=== PATIENT | female | born 1965 | race Caucasian/White ===

== ENCOUNTER → 2017-05-02 | Outpatient (CLI) | payer BC ==
[~2017-05-02] MED LIST: ASPI81TA28 PO; IBUP-1050 PO; skin cream TOP
== END | disposition home or self-care (01) ==
LOC: C.PAPS 14:08
PROVIDERS: ATTEND Obstetrics & Gynecology
DX: Z01.419 Encounter for gynecological examination (general) (routine) without abnormal findings (principal)

== ENCOUNTER 2025-07-08 13:51 | Inpatient (IN) ==
--- NOTE | 2025-07-08 14:16 | Emergency Department Note ---
Impression & Plan Closed fracture of left patella, Fall ED Provider Note HISTORY OF PRESENT ILLNESS: Patient is a 60-year-old female presenting with left knee pain after a fall. Patient reports that she was at the library walking when she had stepped on a wet floor and slid, stating that she went into a split and felt like her left knee "dislocated." She denies striking her head or loss of consciousness. She was unable to get up off the ground secondary to pain in her left knee. EMS reported that the patient's foot was pulseless in the field. Patient's knee is currently flexed at 90 degrees and she is unable to fully extend. Complaining of diffuse pain anteriorly on the knee. Denies any chest pain, shortness of breath or lightheadedness prior to her fall. Reports she just slipped and fell. ROS: as above PHYSICAL EXAM: Constitutional: Patient appears in no acute distress. HENT: Head: Normocephalic and atraumatic. Eyes: EOMI, PERRL Mouth/Throat: Mucous membranes moist. Neck: Trachea midline. Neck supple. No midline cervical spine tenderness palpation. Cardiovascular: RRR, No murmurs, rubs or gallops. Intact distal pulses. Pulmonary/Chest: No respiratory distress. Breath sounds clear and equal bilaterally. No wheezes or rales. No chest wall tenderness to palpation. Abdominal: Abdomen soft, no tenderness, rebound or guarding. Musculoskeletal: - LLE: Obvious deformity to the anterior knee. Knee is diffusely swollen and ecchymosis noted to the proximal knee. No open wounds. Patient is unable to fully extend her knee secondary to pain. Able to dorsiflex and plantarflex at the ankle. Able to wiggle toes. Sensation intact to light touch about the nerve distributions of the lower leg. Intact DP and PT pulses on the left foot. Skin: Warm and dry. No rash, erythema, pallor or cyanosis Psychiatric: Appropriate mood and affect for situation. Neurological: Alert and keenly responsive. CN II-XII grossly intact MDM: - Vitals signs showed hypertension - History obtained via patient. History as above. - Chronic conditions affecting care: T cell lymphoma; HTN; HLD - Differential diagnoses include, but are not limited to: Patellar fracture; knee dislocation; tibial plateau fracture; vascular injury - Order placed for continuous cardiac monitoring. At this time, monitor showed rate of 85 bpm with normal sinus rhythm, per my interpretation. - External medical records reviewed. Oncology/hematology report dated 04/04/2025 was reviewed. Patient follows in their clinic for her T-cell lymphoma. She completed 6 cycles of chemotherapy on 11/25/2024. - Patient initially given 4 mg IV morphine and 4 mg IV Zofran on arrival to the emergency department. - X-ray imaging of the left knee reviewed and interpreted by myself showed a patellar fracture, per my interpretation. - Discussed results with the patient. Discussed that we will give her another dose of pain medication, 50 mcg IV fentanyl, and place her in a knee immobilizer. - X-ray imaging of the left knee reviewed by radiology notes an acute patellar fracture. X-ray imaging of the left tib/fib shows acute patellar fracture per radiology. - Discussed case with on-call orthopedic surgeon, Dr. aGllardo, at 15:34. He recommended that the [facility] in the hospital be contacted to come and evaluate the patient. He request that the patient be admitted to the medicine service for plan for surgical fixation of the patient's patellar fracture tomorrow morning after orthopedics evaluates. Reoperative laboratory orders, EKG and chest x-ray were ordered. - EKG image interpreted by myself showed normal sinus rhythm. Rate 73 bpm. QT 430. No acute ischemic changes. - CTA of the left knee ordered, given the report that patient's foot was pulseless. However, patient does have a palpable pulse both dorsalis pedis and posterior tibialis on arrival to the emergency department. I think her deformity to her left knee was her patellar fracture and less likely to have been a dislocation. - Laboratory workup interpreted by myself showed normal WBC; stable hemoglobin; stable electrolytes; normal troponin - CXR image viewed interpreted by myself is made for pneumonia, per my interpretation. - Discussion was had with case assistant about patient's case and need for admission - Hospitalist consulted for admission - Patient admitted to [facility] service for further evaluation and management. ASSESSMENT AND PLAN: Diagnosis: Closed fracture of left patella; fall Plan: Admit Past Med/Surg History Problem List (Updated 07/08/25 @ 15:52 by Claudia Martins MD) Fall (Acute) Closed fracture of left patella (Acute) Peripheral neuropathy due to chemotherapy Hyperlipidemia Port-A-Cath in place (08/09/24) Insertion Access Port with Fluoroscopy - Right Subclavian(Right) - Haim Manrique, Atopic dermatitis Anxiety LVH (left ventricular hypertrophy) Thyroid nodule T-cell lymphoma "Anaplastic large cell lymphoma" Eczema Leg length discrepancy (Acute) Reactive hypertension (Acute) Medical History (Updated 07/08/25 @ 15:52 by Claudia Martins MD) Lymphadenopathy of left cervical region Abnormal CT scan of head TMJ click Migraine Swelling of lymph node Left side of neck per pt due to cancer History of COVID-19 x2 Most recent 04/21/24- was given paxlovid > resolved Snores Asymptomatic age-related postmenopausal state ADD (attention deficit disorder) Surgical History History of anesthesia reaction difficulty waking, has issues taking deep enough breaths after anesthesia "they keep waking me up saying.. Kaila take a deep breath" History of tooth extraction History of wisdom tooth extraction History of biopsy skin History of excision of mass Excision of left neck mass (07/15/24): Grade 3 view, MAC#3, ETT 7.0 at [facility] H/O left knee surgery multiple left leg/knee (+ hardware) Hx of elbow surgery left tendon Family History Mother Breast cancer Colorectal cancer Family history of reaction to anesthesia Sister Kidney stones Brother Kidney stones Grandmother (Maternal) Ovarian cancer Father Prostate cancer Uncle Prostate cancer Uncle Prostate cancer Uncle Prostate cancer Other Diabetes Hypertension Denies family history of Myocardial infarction Social History Smoking Status: Never smoker Second Hand Exposure: No; Do You Dip or Chew Tobacco: No; Hx Alcohol Use: No Hx Substance Use: No Preferred Language: Urdu Communication Ability: Effective Visual Impairment: No Limitations Hearing Ability: Normal 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 Safety Required: No Beliefs That Will Affect Care: Christian Christian Beliefs: Shinto marital status: Single Current Living Situation: Parent Current Living Situation Comment: Lives with 92yr old mom current occupational status: employed Feels Safe at Home: Yes Childhood Exposure to Second-Hand Smoke: No Dental Care, Regularly: No Physical Activity Frequency: 1-2 Times per Week Seatbelt Use: always Sunscreen Use: Yes Assistive Devices: Glasses Allergies Allergies Allergy/AdvReac Type Severity Reaction Status Date / Time adhesive tape Allergy Mild rash, skin Verified 03/14/25 15:45 irritation latex Allergy Mild rash, Verified 03/14/25 15:45 itching chlorhexidine AdvReac Intermediate Rash Verified 03/14/25 15:45 SHAMPOO AdvReac Intermediate sensitive Uncoded 03/14/25 15:45 skin detergants AdvReac Mild "sensitive Uncoded 03/14/25 15:45 skin" Home Meds Home Medications Medication Instructions Recorded Confirmed multivitamin with minerals-folic 200 mcg PO HS 07/16/19 03/14/25 acid 200 mcg chewable tablet (Women's Multivitamin Gummies) ascorbic acid (vitamin C) 60 mg 60 mg PO BID PRN Cold Symptoms 08/29/23 03/14/25 lozenges (Vitamin C Drops) ibuprofen 200 mg tablet 400 - 600 mg PO Q6H PRN Pain 08/06/24 03/14/25 turmeric 400 mg capsule 400 mg PO UD PRN pain/inflammation 08/06/24 03/14/25 fluticasone propionate 50 1 spray intranasal DAILY 03/14/25 03/14/25 mcg/actuation nasal spray,suspension (Flonase Allergy Relief) Previous Rx's Medication Instructions Recorded clobetasol 0.05 % topical cream 1 applic topical BID #60 grams 08/12/24 rosuvastatin 5 mg tablet 5 mg PO QPM #90 tabs 02/13/25 gabapentin 600 mg tablet See Rx Instructions .Route 05/20/25 .COMPLEX #90 tabs Results & Data (ED) Vital Signs Vital Signs - 24 hr 07/08/25 13:54 07/08/25 14:24 07/08/25 15:19 Temperature 36.8 C Temperature Source Oral Pulse Rate 92 H 89 Pulse Rate [Apical] 85 Pulse Rhythm Regular Pulse Rhythm [Apical] Regular Pulse Strength Normal Pulse Strength [Apical] Normal Respiratory Rate 20 18 Respiratory Effort / Characteristics Non-Labored Non-Labored Spontaneous Respiratory Depth Normal Normal Respiratory Pattern Regular Blood Pressure 181/101 H Blood Pressure [Left Arm] 172/97 H Blood Pressure Mean 127 Blood Pressure Mean [Left Arm] 122 Blood Pressure Position Lying Blood Pressure Position [Left Arm] Lying Pulse Oximetry 98 98 Oxygen Delivery Method Room Air Room Air Sepsis Recent Fever Within 48 Hours No Sepsis New/Unexplained Change in Mental Status No Sepsis Action Taken by Nursing No Action Required 07/08/25 15:19 Temperature Temperature Source Pulse Rate Pulse Rate [Apical] Pulse Rhythm Pulse Rhythm [Apical] Pulse Strength Pulse Strength [Apical] Respiratory Rate Respiratory Effort / Characteristics Respiratory Depth Respiratory Pattern Blood Pressure Blood Pressure [Left Arm] Blood Pressure Mean Blood Pressure Mean [Left Arm] Blood Pressure Position Blood Pressure Position [Left Arm] Pulse Oximetry 97 Oxygen Delivery Method Room Air Sepsis Recent Fever Within 48 Hours Sepsis New/Unexplained Change in Mental Status Sepsis Action Taken by Nursing Laboratory Data 07/08/25 Unknown 07/08/25 Unknown Lab Results 07/08/25 Range/Units Unknown WBC 4.24 L (4.8-10.8) K/ul RBC 4.45 (4.20-5.40) M/uL Hgb 12.6 (12.0-16.0) g/dl Hct 38.3 (37.0-47.0) % MCV 86.1 (80.0-100.0) fL MCH 28.3 (25.0-34.0) pg MCHC 32.9 (32.0-36.0) g/dL RDW Std Deviation 38.5 (36.4-46.3) fL RDW Coeff of Wanda 12.2 (11.5-14.5) % Plt Count 134 (130-400) K/uL MPV 10.1 (9.4-12.4) fL Immature Gran % (Auto) 0.5 % Neut % (Auto) 56.3 % Lymph % (Auto) 30.2 % [place] % (Auto) 9.9 % Eos % (Auto) 2.4 % Baso % (Auto) 0.7 % Neut # (Auto) 2.39 (1.40-6.50) K/uL Lymph # (Auto) 1.28 (1.20-3.40) K/uL [place] # (Auto) 0.42 (0.11-0.59) K/uL Eos # (Auto) 0.10 (0.00-0.50) K/uL Baso # (Auto) 0.03 (0.00-0.20) K/uL Immature Gran # (Auto) 0.02 (0.01-0.20) K/uL Sodium 140 (136-145) mmol/L Potassium 3.6 (3.5-5.1) mmol/L Chloride 106 (98-107) mmol/L Carbon Dioxide 26 (21-32) mmol/L Anion Gap 8 (3-11) BUN 19 (6-23) mg/dl Creatinine 0.74 (0.6-1.2) mg/dl Est Cr Clr Drug Dosing 91.6 ml/min eGFR 92.57 BUN/Creatinine Ratio 25.7 H (10-20) Glucose 114 H (70-99(Fasting)) mg/dl Calcium 9.1 (8.6-10.3) mg/dl Total Bilirubin 0.4 (0.2-1.0) mg/dl AST 22 (13-39) U/L ALT 21 (7-52) U/L Alkaline Phosphatase 73 (34-104) U/L Troponin I High Sens 10.4 (0-14) pg/ml Total Protein 6.9 (6.0-8.3) gm/dl Albumin 4.0 (3.4-5.0) gm/dl Globulin 2.9 (2.5-4.0) gm/dl Albumin/Globulin Ratio 1.4 (0.9-2) Administered Medications Discontinued Medications Fentanyl Citrate (Fentanyl Citrate Pf 100 Mcg/2 Ml Vial) 50 mcg IV NOW STA Stop: 07/08/25 15:15 Last Admin: 07/08/25 15:31 Dose: 50 mcg Documented By: KEKE Morphine Sulfate (Morphine Sulfate 4 Mg/Ml 1 Ml Carp\\Vial) 4 mg IV NOW STA Stop: 07/08/25 14:14 Last Admin: 07/08/25 14:23 Dose: 4 mg Documented By: COLEEN Ondansetron HCl (Ondansetron Inj 2 Mg/Ml 2 Ml Vial) 4 mg IV NOW STA Stop: 07/08/25 14:14 Last Admin: 07/08/25 14:23 Dose: 4 mg Documented By: COLEEN Imaging Data Radiologist's Impression: Knee X-Ray 07/08/25 14:13 XR knee LT 1 or 2V routine, XR tibia fibula LT 2V CLINICAL HISTORY: L knee pain s/p trauma COMPARISON: None FINDINGS: Plate-screw fixation of the distal femur and proximal tibia shows no hardware complication. There is an acute comminuted displaced fracture at the patella with separation of the superior and inferior fragments by 6 cm. No other fracture or dislocation seen at the left knee or left tibia and fibula. There is moderate osteoarthritis at the left knee. IMPRESSION: Acute patella fracture. ACT 112: Negative or not required by law. Electronically signed by: Yasmani Baez M.D. 07/08/2025 3:11 PM Tibia/Fibula X-Ray 07/08/25 14:13 XR knee LT 1 or 2V routine, XR tibia fibula LT 2V CLINICAL HISTORY: L knee pain s/p trauma COMPARISON: None FINDINGS: Plate-screw fixation of the distal femur and proximal tibia shows no hardware complication. There is an acute comminuted displaced fracture at the patella with separation of the superior and inferior fragments by 6 cm. No other fracture or dislocation seen at the left knee or left tibia and fibula. There is moderate osteoarthritis at the left knee. IMPRESSION: Acute patella fracture. ACT 112: Negative or not required by law. Electronically signed by: Yasmani Baez M.D. 07/08/2025 3:11 PM Chest X-Ray 07/08/25 15:35 XR chest 1V portable CLINICAL HISTORY: pre op COMPARISON STUDY: 08/20/2024 FINDINGS: Stable right chest port. Heart size and pulmonary vasculature are normal. No consolidation or pleural effusion. No pneumothorax. IMPRESSION: No acute findings. ACT 112: Negative or not required by law. Electronically signed by: Yasmani Baez M.D. 07/08/2025 3:54 PM Discharge Plan Visit Data Chief Complaint: Knee Injury/Pain ED Provider: Claudia Martins Discharge Problem: Closed fracture of left patella, Fall Condition: Fair Forms Stand Alone Forms: [facility] Prescriptions Prescriptions: No Action clobetasol 0.05 % cream 1 applic topical BID Qty: 60 1RF Rx Instructions: Apply to areas of the trunk and extremities twice daily x 2 weeks as directed. rosuvastatin 5 mg tablet 5 mg PO QPM Qty: 90 1RF gabapentin 600 mg tablet See Rx Instructions .ROUTE .COMPLEX Qty: 90 1RF Dose Instruction: TAKE 1 TABLET BY MOUTH THREE TIMES A DAY Rx Instructions: TAKE 1 TABLET BY MOUTH THREE TIMES A DAY Vitamin C Drops 60 mg lozenge 60 mg PO BID PRN (Reason: Cold Symptoms) fluticasone propionate [Flonase Allergy Relief] 50 mcg/actuation spray,suspension 1 spray intranasal DAILY Rx Instructions: administer into each nostril multivit with min-folic acid [Women's Multivitamin Gummies] 200 mcg Tablet,Chewable 200 mcg PO HS ibuprofen 200 mg Tablet 400 - 600 mg PO Q6H PRN (Reason: Pain) turmeric 400 mg Capsule 400 mg PO UD PRN (Reason: pain/inflammation) Referrals Referrals: Abran Moss MD [Primary Care Provider] -
[2025-07-08] MEDS: ONDANSETRON INJ 2 MG/ML 2 ML VIAL IV STA (14:23)
[2025-07-08] MEDS: MoRPHine SULFATE 4 MG/ML 1 ML CARP\\VIAL IV STA (14:23)
--- NOTE | 2025-07-08 15:12 | XRay Report ---
XR knee LT 1 or 2V routine, XR tibia fibula LT 2V CLINICAL HISTORY: L knee pain s/p trauma COMPARISON: None FINDINGS: Plate-screw fixation of the distal femur and proximal tibia shows no hardware complication . There is an acute comminuted displaced fracture at the patella with separation of the superior and inferior fragments by 6 cm. No other fracture or dislocation seen at the left knee or left tibia and fibula. There is moderate osteoarthritis at the left knee. IMPRESSION: Acute patella fracture. ACT 112: Negative or not required by law. Electronically signed by: Yasmani Baez M.D. 07/08/2025 3:11 PM
[2025-07-08 15:47] LABS: Hematocrit (blood only) 38.3 % (37.0-47.0); Hemoglobin 12.6 g/dl (12.0-16.0); Immature Granulocytes # (auto) 0.02 K/uL (0.01-0.20); Immature Granulocytes % (auto) 0.5 %; Mean Corpuscular Hemoglobin 28.3 pg (25.0-34.0); Mean Corpuscular Volume 86.1 fL (80.0-100.0); Platelet Count 134 K/uL (130-400); RDW Standard Deviation 38.5 fL (36.4-46.3); Red Blood Count 4.45 M/uL (4.20-5.40); White Blood Count 4.24 K/ul (4.8-10.8)
[2025-07-08 15:54] LABS: Alanine Aminotransferase 21.0 U/L (7-52); Albumin Globulin Ratio 1.4 (0.9-2); Albumin Level 4.0 gm/dl (3.4-5.0); Alkaline Phosphatase 73.0 U/L (34-104); Anion Gap 8.0 (3-11); Bilirubin,Total 0.4 mg/dl (0.2-1.0); Blood Urea Nitrogen 19.0 mg/dl (6-23); Calcium 9.1 mg/dl (8.6-10.3); Carbon Dioxide 26.0 mmol/L (21-32); Chloride 106.0 mmol/L (98-107); Creatinine Clr Calc Pharmacy 91.6 ml/min; Globulin 2.9 gm/dl (2.5-4.0); Glucose 114.0 mg/dl (70-99(Fasting)); Potassium 3.6 mmol/L (3.5-5.1); Sodium 140.0 mmol/L (136-145); Total Protein 6.9 gm/dl (6.0-8.3)
--- NOTE | 2025-07-08 15:55 | XRay Report ---
XR chest 1V portable CLINICAL HISTORY: pre op COMPARISON STUDY: 08/20/2024 FINDINGS: Stable right chest port. Heart size and pulmonary vasculature are normal. No consolidation or pleural effusion. No pneumothorax. IMPRESSION: No acute findings. ACT 112: Negative or not required by law. Electronically signed by: Yasmani Baez M.D. 07/08/2025 3:54 PM
[2025-07-08] MEDS: OPTIRAY 320 125ml IV ONE (16:29)
--- NOTE | 2025-07-08 16:58 | History & Physical Report ---
Date of Service July 08, 2025 Assessment & Plan (1) Closed fracture of left patella: (2) Peripheral neuropathy due to chemotherapy: (3) Port-A-Cath in place: (4) T-cell lymphoma: Plan This is a 60-year-old female with a history of T-cell lymphoma status postchemotherapy currently in remission who presents to the hospital following a mechanical fall. She sustained a left patella fracture. 1. Acute left patella fracture: Following a mechanical fall Imaging study shows evidence of acute left patella fracture Orthopedics has been notified Will keep her n.p.o. after midnight good control pain, Tylenol, morphine She is medically optimized for surgery 2. T-cell lymphoma: Status postchemotherapy. Currently in remission Although patient still has a port Full code History of Present Illness Chief Complaint: fall Primary Care Provider: Abran Moss MD This is a 60-year-old female with a history of anaplastic large cell lymphoma, status post chemotherapy, currently in remission who came to the hospital today following a mechanical fall. According to the patient he was walking through a wet marble floor when she slipped lost her balance and fell on her knee. She denied hitting her head but complained immediately of diffuse pain in the knee. Upon arrival at the emergency department an x-ray was done which showed evidence of an acute left patella fracture. Orthopedics has been consulted and plan is for her to be admitted to the hospital for the OR tomorrow morning. Vital signs are stable, blood pressure 150/99 pulse 89 respiratory rate 16 saturating 97% on room air. Allergies Allergy/AdvReac Type Severity Reaction Status Date / Time adhesive tape Allergy Mild rash, skin Verified 03/14/25 15:45 irritation latex Allergy Mild rash, Verified 03/14/25 15:45 itching chlorhexidine AdvReac Intermediate Rash Verified 03/14/25 15:45 SHAMPOO AdvReac Intermediate sensitive Uncoded 03/14/25 15:45 skin detergants AdvReac Mild "sensitive Uncoded 03/14/25 15:45 skin" Home Medications Medication Instructions Recorded Confirmed Type multivitamin with minerals-folic 200 mcg PO HS 07/16/19 07/08/25 History acid 200 mcg chewable tablet (Women's Multivitamin Gummies) ascorbic acid (vitamin C) 60 mg 60 mg PO BID PRN Cold Symptoms 08/29/23 07/08/25 History lozenges (Vitamin C Drops) ibuprofen 200 mg tablet 400 - 600 mg PO Q6H PRN Pain 08/06/24 07/08/25 History turmeric 400 mg capsule 400 mg PO UD PRN pain/inflammation 08/06/24 07/08/25 History clobetasol 0.05 % topical cream 1 applic topical BID #60 grams 08/12/24 07/08/25 Rx fluticasone propionate 50 1 spray intranasal DAILY 03/14/25 07/08/25 History mcg/actuation nasal spray,suspension (Flonase Allergy Relief) gabapentin 600 mg tablet 600 mg PO TID 07/08/25 07/08/25 History rosuvastatin 5 mg tablet 5 mg PO QAM 07/08/25 07/08/25 History Past Med/Surg History Problem List (Updated 07/08/25 @ 15:52 by Claudia Martins MD) Fall (Acute) Closed fracture of left patella (Acute) Peripheral neuropathy due to chemotherapy Hyperlipidemia Port-A-Cath in place (08/09/24) Insertion Access Port with Fluoroscopy - Right Subclavian(Right) - Haim Manrique DO Atopic dermatitis Anxiety LVH (left ventricular hypertrophy) Thyroid nodule T-cell lymphoma "Anaplastic large cell lymphoma" Eczema Leg length discrepancy (Acute) Reactive hypertension (Acute) Medical History (Updated 07/08/25 @ 15:52 by Claudia Martins MD) Lymphadenopathy of left cervical region Abnormal CT scan of head TMJ click Migraine Swelling of lymph node Left side of neck per pt due to cancer History of COVID-19 x2 Most recent 04/21/24- was given paxlovid > resolved Snores Asymptomatic age-related postmenopausal state ADD (attention deficit disorder) Surgical History History of anesthesia reaction difficulty waking, has issues taking deep enough breaths after anesthesia "they keep waking me up saying.. Kaila take a deep breath" History of tooth extraction History of wisdom tooth extraction History of biopsy skin History of excision of mass Excision of left neck mass (07/15/24): Grade 3 view, MAC#3, ETT 7.0 at [facility] H/O left knee surgery multiple left leg/knee (+ hardware) Hx of elbow surgery left tendon Family History Mother Breast cancer Colorectal cancer Family history of reaction to anesthesia Sister Kidney stones Brother Kidney stones Grandmother (Maternal) Ovarian cancer Father Prostate cancer Uncle Prostate cancer Uncle Prostate cancer Uncle Prostate cancer Other Diabetes Hypertension Denies family history of Myocardial infarction Social History Smoking Status: Never smoker Second Hand Exposure: No; Do You Dip or Chew Tobacco: No; Hx Alcohol Use: No Hx Substance Use: No Preferred Language: Upper Sorbian Communication Ability: Effective Visual Impairment: No Limitations Hearing Ability: Normal [place] Required: No Beliefs That Will Affect Care: Latter Day Latter Day Beliefs: Buddhism marital status: Single Current Living Situation: Parent Current Living Situation Comment: Lives with 92yr old mom current occupational status: employed Feels Safe at Home: Yes Childhood Exposure to Second-Hand Smoke: No Dental Care, Regularly: No Physical Activity Frequency: 1-2 Times per Week Seatbelt Use: always Sunscreen Use: Yes Assistive Devices: Glasses Review of Systems Review of Systems: All systems reviewed are negative, apart from the ones contained in the history. Physical Exam Physical Exam: The patient is awake, alert and oriented 3, well developed and well nourished, normocephalic and atraumatic, lying in bed and in no acute distress. HEENT--PERRL, EOMI, mucous membranes and oropharynx mildly dry Neck--supple. No JVD. No bruits. Thyroid normal, trachea midline, no adenopathy. Heart--normal S1 and S2. No murmurs, rubs or gallops. Lungs--clear bilaterally, no respiratory distress, no accessory muscle use. Abdomen--normal bowel sounds and soft. Extremities--Left lower extremity in splint Dermatologic--normal skin turgor, normal color, no abnormal lymph nodes, no rash. Neurologic--cranial nerves II through XII grossly intact. Rheumatologic--normal range of motion. Psychiatric--normal affect. Results & Data Results & Data Vital Signs (Past 12 Hours) Vital Signs Temp Pulse Pulse Resp BP BP Pulse Ox 07/08/25 16:00 89 16 151/99 H 07/08/25 15:19 97 07/08/25 15:19 85 18 172/97 H 98 07/08/25 14:24 89 07/08/25 13:54 98.2 F 92 H 20 181/101 H 98 O2 Del Method 07/08/25 16:00 Room Air 07/08/25 15:19 Room Air 07/08/25 15:19 Room Air 07/08/25 14:24 07/08/25 13:54 Room Air PG Care Time/CCT Total # of Minutes Spent Total Time Spent with Patient: Total time spent is greater than 50% in coordination of care (as documented) at patient's floor/unit and/or counseling patient: Coding Level of Care Code 06919 INT INP/OBS CARE 2/55MIN Diagnoses Closed fracture of left patella S82.002A Peripheral neuropathy due to chemotherapy G62.0; T45.1X5A Port-A-Cath in place Z95.828 T-cell lymphoma C85.90 Time Spent (min) 55
--- NOTE | 2025-07-08 18:37 | CT Scan Report ---
Clinical history: Pain after injury Technique: Axial computed tomography images were obtained of the left knee after the administration of 118 cc of Optiray 320 intravenous contrast according to the CT angiogram protocol. Sagittal and coronal reconstructions were obtained No prior examination is available for comparison. Findings: The distal left superficial femoral artery, popliteal artery, and visualized calf arteries all demonstrate normal enhancement with no definite stenosis, dissection, pseudoaneurysm, or occlusion seen There is a soft tissue hematoma anteriorly, measuring up to 10 x 3 cm in cross-section and approximately 11 cm craniocaudal. There is some suspected contrast extravasation posterior to the patella There is internal fixation of the distal left femur with a fixation plate and screws. There is internal fixation of the proximal left tibia with fixation plates and screws. There is a distracted fracture of the patella that appears acute. There are small displaced fracture fragments. No subluxation or dislocation is seen. There are no significant arthritic changes. No focal osseous lesion is evident The visualized musculature appears unremarkable. No foreign body is evident Impression: 1. Distracted fracture of the patella 2. Soft tissue hematoma adjacent to the patellar fracture, with suspected active bleeding 3. Normal-appearing arteries 4. Internal fixation of the distal left femur and proximal left tibia ACT 112: Positive. There are findings on this exam that require communication between the performing entity and the patient following Patient Test Result Information Act ([place] ACT 112) guidelines. Electronically signed by Alec Mcclain 07-08-2025 6:37 PM
[2025-07-08] MEDS ORDERED: ACETAMINOPHEN 325 MG TAB PO PRN (18:44)
[2025-07-08] MEDS ORDERED: ONDANSETRON INJ 2 MG/ML 2 ML VIAL IV PRN (18:44)
[2025-07-08 20:45] LABS: INR 1.1 (0.9-1.1); Prothrombin Time 11.6 Seconds (9.0-12.0)
[2025-07-08] MEDS: SODIUM CHLORIDE 0.9% 1,000 ML IV SCH (21:00)
--- NOTE | 2025-07-08 21:09 | Orthopedic Consultation ---
Date of Service July 08, 2025 Assessment & Plan (1) Closed fracture of left patella: 60-year-old female with a long history of left lower extremity problems and surgery in the past with nothing recent in the past 20 years status post a fall with a comminuted displaced patella fracture. This is certainly some that needs surgical repair. No other injuries. 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 Plan: Treatment options were explained. The patient's been admitted by the medicine service and medically optimized. The plan is to take her to the operating tomorrow and do a partial patellectomy and extensor mechanism repair. The [place] of this procedure explained. Informed consent was obtained. Will use aspirin for DVT prophylaxis. (2) Fall: (3) Peripheral neuropathy due to chemotherapy: (4) Hyperlipidemia: History of Present Illness Reason for Consultation: . Left knee injury with patella fracture. Requesting Physician: . Attending Physician: Hector De La Vega MD . The patient is a 60-year-old female who presented to the emergency room earlier today with I displaced patella fracture status post a fall. She stained a mechanical fall earlier in the day. She got a long history of left knee and leg problems on that side. She has had a broken ankle, a tibial plateau fracture and then a distal femur fracture all several years apart with the last one being fixed about [address] Wolf. Previous surgeries were done by Dr. Vivar. She did have some wound healing problems at the tibial plateau fracture but nothing after the femur fracture nothing in the past 20 years. She denies any other injuries. She describes isolated knee and leg pain. Of note, the patient has a history of a T-cell lymphoma currently in remission. Allergies Allergy/AdvReac Type Severity Reaction Status Date / Time adhesive tape Allergy Mild rash, skin Verified 03/14/25 15:45 irritation latex Allergy Mild rash, Verified 03/14/25 15:45 itching chlorhexidine AdvReac Intermediate Rash Verified 03/14/25 15:45 SHAMPOO AdvReac Intermediate sensitive Uncoded 03/14/25 15:45 skin detergants AdvReac Mild "sensitive Uncoded 03/14/25 15:45 skin" Home Medications Medication Instructions Recorded Confirmed Type multivitamin with minerals-folic 200 mcg PO HS 07/16/19 07/08/25 History acid 200 mcg chewable tablet (Women's Multivitamin Gummies) ascorbic acid (vitamin C) 60 mg 60 mg PO BID PRN Cold Symptoms 08/29/23 07/08/25 History lozenges (Vitamin C Drops) ibuprofen 200 mg tablet 400 - 600 mg PO Q6H PRN Pain 08/06/24 07/08/25 History turmeric 400 mg capsule 400 mg PO UD PRN pain/inflammation 08/06/24 07/08/25 History clobetasol 0.05 % topical cream 1 applic topical BID #60 grams 08/12/24 07/08/25 Rx fluticasone propionate 50 1 spray intranasal DAILY 03/14/25 07/08/25 History mcg/actuation nasal spray,suspension (Flonase Allergy Relief) gabapentin 600 mg tablet 600 mg PO TID 07/08/25 07/08/25 History rosuvastatin 5 mg tablet 5 mg PO QAM 07/08/25 07/08/25 History Past Med/Surg History Problem List Fall (Acute) Closed fracture of left patella (Acute) Peripheral neuropathy due to chemotherapy Hyperlipidemia Port-A-Cath in place (08/09/24) Insertion Access Port with Fluoroscopy - Right Subclavian(Right) - Haim Manrique DO Atopic dermatitis Anxiety LVH (left ventricular hypertrophy) Thyroid nodule T-cell lymphoma "Anaplastic large cell lymphoma" Eczema Leg length discrepancy (Acute) Reactive hypertension (Acute) Medical History Lymphadenopathy of left cervical region Abnormal CT scan of head TMJ click Migraine Swelling of lymph node Left side of neck per pt due to cancer History of COVID-19 x2 Most recent 04/21/24- was given paxlovid > resolved Snores Asymptomatic age-related postmenopausal state ADD (attention deficit disorder) Surgical History History of anesthesia reaction difficulty waking, has issues taking deep enough breaths after anesthesia "they keep waking me up saying.. Kaila take a deep breath" History of tooth extraction History of wisdom tooth extraction History of biopsy skin History of excision of mass Excision of left neck mass (07/15/24): Grade 3 view, MAC#3, ETT 7.0 at [facility] H/O left knee surgery multiple left leg/knee (+ hardware) Hx of elbow surgery left tendon Family History Mother Breast cancer Colorectal cancer Family history of reaction to anesthesia has anxiety issues Sister Kidney stones Brother Kidney stones Grandmother (Maternal) Ovarian cancer Father Prostate cancer Uncle Prostate cancer Uncle Prostate cancer Uncle Prostate cancer Other Diabetes Hypertension Denies family history of Myocardial infarction Social History Smoking Status: Never smoker Second Hand Exposure: No; Do You Dip or Chew Tobacco: No; Hx Alcohol Use: Yes Hx Substance Use: No Preferred Language: Albanian Communication Ability: Effective Visual Impairment: No Limitations Hearing Ability: Normal Technology Administrator Required: No Beliefs That Will Affect Care: Adventist Adventist Beliefs: Oriental Orthodox marital status: Single Current Living Situation: Family Current Living Situation Comment: lives with mother current occupational status: employed Feels Safe at Home: Yes Childhood Exposure to Second-Hand Smoke: No Dental Care, Regularly: No Physical Activity Frequency: 1-2 Times per Week Seatbelt Use: always Sunscreen Use: Yes Assistive Devices: Glasses Review of Systems All systems reviewed & are unremarkable except as noted in HPI & below. Physical Exam . Physical examination was a pleasant middle-aged female. She is lying in bed looks pretty comfortable in a knee immobilizer. An examination of the left knee reveals a well aligned leg. She is she has got a well-healed incision over the anterior lateral aspect of her tibial tubercle extending posterior laterally up the lateral left thigh. She has got a large knee joint effusion. She cannot do a straight leg raise. She can dorsiflex and plantarflex her foot appropriately. She is neurologically intact. Results & Data Results & Data Laboratory Results . Diagnostic Findings . X-rays of the left knee and tib-fib were reviewed. It shows a comminuted displaced patella fracture with disruption of the extensor mechanism. That she has got hardware in the distal femur and proximal tibia but no signs of fracture there. PG Care Time/CCT Total # of Minutes Spent Total Time Spent with Patient: Total time spent is greater than 50% in coordination of care (as documented) at patient's floor/unit and/or counseling patient: Coding Level of Care Code 62083 IN/OBS CONSULT LVL 5,80M (57 - DECISION FOR SURGERY) Diagnoses Closed fracture of left patella S82.002A Fall W19.XXXA Peripheral neuropathy due to chemotherapy G62.0; T45.1X5A Hyperlipidemia E78.5
[2025-07-08] MEDS: MoRPHine SULFATE 2 MG/ML CARP IV PRN (21:47)
--- NOTE | 2025-07-09 06:59 | History & Physical Bridge Note ---
Date of Service July 09, 2025 History & Physical Bridge Note I have examined the patient, reviewed the History & Physical and in the interval since the performance of the History & Physical I have noted the following changes of clinical significance: no changes noted
[2025-07-09] MEDS ORDERED: MIDAZOLAM HCL 1 MG/ML 2ML VIAL ONE (07:06)
[2025-07-09] MEDS ORDERED: DEXAMETHASONE SOD INJ 4 MG/ML VIAL ONE (07:07)
[2025-07-09] MEDS ORDERED: ONDANSETRON INJ 2 MG/ML 2 ML VIAL ONE (07:07)
[2025-07-09] MEDS ORDERED: PROPOFOL IV EMULSION 10 MG/ML 20 ML VIAL IV ONE ×2 (07:07→08:22)
[2025-07-09] MEDS ORDERED: LIDOCAINE 2% 2 ML VIAL/AMP(20MG/ML) INFIL ONE (07:07)
[2025-07-09] MEDS ORDERED: ROCURONIUM BROMIDE 10 MG/ML 5 ML VIAL IV ONE (07:09)
[2025-07-09] MEDS ORDERED: ACETAMINOPHEN 1000 MG/100 ML IV IV ONE (07:12)
--- NOTE | 2025-07-09 07:16 | Anesthesiology Consultation ---
Date of Service July 09, 2025 Assessment & Plan Chart Review Chart Review: Acceptable Risk for Surgery and Patient NOT seen in Pre Admission Testing Consults Requested none ASA ASA3 Proposed Anesthesia Anesthesia Type: General History Surgery Operation Date: 07/09/25 07:30 Proposed Procedures p Left Knee Partial Patellectomy, Extensor Mechanism Repair - Corwin Gallardo MD Height/Weight Height: 5 ft 5 in Weight: 94 kg Allergies Allergy/AdvReac Type Severity Reaction Status Date / Time adhesive tape Allergy Mild rash, skin Verified 03/14/25 15:45 irritation latex Allergy Mild rash, Verified 03/14/25 15:45 itching chlorhexidine AdvReac Intermediate Rash Verified 03/14/25 15:45 SHAMPOO AdvReac Intermediate sensitive Uncoded 03/14/25 15:45 skin detergants AdvReac Mild "sensitive Uncoded 03/14/25 15:45 skin" Medications Home Medications Medication Instructions Recorded Confirmed Last Taken multivitamin with minerals-folic 200 mcg PO HS 07/16/19 07/08/25 08/05/24 acid 200 mcg chewable tablet (Women's Multivitamin Gummies) ascorbic acid (vitamin C) 60 mg 60 mg PO BID PRN Cold Symptoms 08/29/23 07/08/25 08/06/24 lozenges (Vitamin C Drops) ibuprofen 200 mg tablet 400 - 600 mg PO Q6H PRN Pain 08/06/24 07/08/25 08/08/24 23:59 turmeric 400 mg capsule 400 mg PO UD PRN pain/inflammation 08/06/24 07/08/25 08/02/24 clobetasol 0.05 % topical cream 1 applic topical BID #60 grams 08/12/24 07/08/25 07/07/25 fluticasone propionate 50 1 spray intranasal DAILY 03/14/25 07/08/25 Unknown mcg/actuation nasal spray,suspension (Flonase Allergy Relief) gabapentin 600 mg tablet 600 mg PO TID 07/08/25 07/08/25 07/08/25 rosuvastatin 5 mg tablet 5 mg PO QAM 07/08/25 07/08/25 07/08/25 Active Medications Generic Name Dose Route Start Last Admin Trade Name Freq PRN Reason Stop Dose Admin Sodium Chloride 1,000 mls @ 80 mls/hr 07/08/25 18:44 07/08/25 21:00 Nss IV 07/11/25 18:43 80 mls/hr .[id number] Administration Morphine Sulfate 2 mg 07/08/25 18:44 07/08/25 21:47 Morphine Sulfate 2 Mg/Ml Carp IV 07/22/25 18:43 2 mg Q4H PRN Administration Pain Past Medical History Medical History Lymphadenopathy of left cervical region Abnormal CT scan of head TMJ click Migraine Swelling of lymph node Left side of neck per pt due to cancer History of COVID-19 x2 Most recent 04/21/24- was given paxlovid > resolved Snores Asymptomatic age-related postmenopausal state ADD (attention deficit disorder) obese HLD Exercise / Class Metabolic Activity II 4-5 Yardwork/Stairs/Walk up hill Past Family History Family History Mother Breast cancer Colorectal cancer Family history of reaction to anesthesia has anxiety issues Sister Kidney stones Brother Kidney stones Grandmother (Maternal) Ovarian cancer Father Prostate cancer Uncle Prostate cancer Uncle Prostate cancer Uncle Prostate cancer Other Diabetes Hypertension Denies family history of Myocardial infarction Past Surgical History Surgical History History of anesthesia reaction difficulty waking, has issues taking deep enough breaths after anesthesia "they keep waking me up saying.. Kaila take a deep breath" History of tooth extraction History of wisdom tooth extraction History of biopsy skin History of excision of mass Excision of left neck mass (07/15/24): Grade 3 view, MAC#3, ETT 7.0 at [facility] H/O left knee surgery multiple left leg/knee (+ hardware) Hx of elbow surgery left tendon Past Anesthesia History No Hx of Anesthesia Complications and No Family Hx of Anesthesia Complications History of PONV No Hx of PONV and No Hx of Motion Sickness Social History Smoking Status: Never smoker Do You Dip or Chew Tobacco: No Hx Alcohol Use: Yes alcohol intake frequency: holidays/special occasions only Hx Substance Use: No substance use type: does not use Physical Exam Vital Signs Last Vital Signs Temp 37.1 C 07/08/25 23:50 Pulse 79 07/08/25 23:50 Resp 16 07/08/25 23:50 BP 119/76 07/08/25 23:50 Pulse Ox 92 07/08/25 23:50 O2 Del Method Room Air 07/08/25 23:50 Testing Laboratory Results 07/08/25 Unknown 07/08/25 Unknown PT 11.6 Seconds (9.0-12.0) 07/08/25 19:45 INR 1.1 (0.9-1.1) 07/08/25 19:45 Electrocardiogram Date: 07/08/25 Findings: + NSR @ (@ 73;? anter. infarct,age ?) Chest X-Ray Date: 07/08/25 Findings: + NAD Echocardiogram Date: 06/28/25 EF: 55% LV Function: normal RWMA: + none Other Findings: + LVH (mild) and + diastolic dysfunction (Grade 1) Valvular Disease: + no significant valvular disease
[2025-07-09] MEDS ORDERED: ceFAZolin 330 MG/ML 1 GM VIAL ONE (07:37)
[2025-07-09] MEDS ORDERED: WATER, STERILE FOR INJ 10 ML VIAL ONE ×3 (07:37→08:18)
[2025-07-09] MEDS ORDERED: TRANEXAMIC ACID / 0.7% NACL 1000MG/100ML BAG IV ONE (07:37)
[2025-07-09] MEDS ORDERED: ONDANSETRON INJ 2 MG/ML 2 ML VIAL IV PRN ×2 (07:42→10:48)
[2025-07-09] MEDS ORDERED: FLUMAZENIL 0.1 MG/1 ML 10 ML VIAL IV PRN (07:42)
[2025-07-09] MEDS ORDERED: PROMETHAZINE HCL 6.25 MG in SODIUM CHLORIDE 0.9% 50 ML IV PRN (07:42)
[2025-07-09] MEDS ORDERED: HYDROmorphone INJ 1 MG/ML SYRINGE IV PRN (07:42)
[2025-07-09] MEDS ORDERED: NALOXONE HCL 0.4 MG/1 ML VIAL/CARP IV PRN ×2 (07:42→10:48)
[2025-07-09] MEDS ORDERED: ATROPINE SULFATE 0.1 MG/ML 10ML SYR IV PRN (07:42)
[2025-07-09] MEDS: TRANEXAMIC ACID / 0.7% NACL 1,000 MG/100 ML BAG IV STA (08:07)
[2025-07-09] MEDS ORDERED: HYDROmorphone INJ 2 MG/ML SYR/VIAL ONE (08:17)
[2025-07-09] MEDS ORDERED: METOCLOPRAMIDE HCL INJ 5 MG/ML 2 ML VIAL ONE (08:22)
[2025-07-09] MEDS ORDERED: KETOROLAC 30 MG/ML VIAL ONE (08:53)
[2025-07-09] MEDS: BUPIVACAINE/EPINEPHRINE 0.5% MPF 1:200,000 30 ML VIAL ONE (09:17)
--- NOTE | 2025-07-09 09:55 | Operative Report ---
PG Post Operative Report Pre & Post Diagnosis Operation Date: 07/09/25 07:30 Pre-Op Diagnosis: Closed comminuted/displaced fracture of left patella. Post-Op Diagnosis: Closed comminuted/displaced fracture of left patella. I identified the patient and participated in the time-out.: Yes Procedure Operation Date: 07/09/25 07:30 Actual Procedures p Left Knee Partial Patellectomy, Extensor Mechanism Repair(Left) - Corwin Gallardo MD Surgeon Corwin Gallardo MD Pay Station Department Manager Vasiliy Saravia PA-C Estimated Blood Loss 50 Findings Consistent with Post-Op Diagnosis Operative findings revealed extremely comminuted displaced patella fracture with X3 medial and lateral retinacular tears. Specimens None Anesthesia Type General Complications none Disposition Accompanied Patient To Recovery: No Indications Patient is a 60-year-old female whose had a long history of various problems with respect of his left leg. That she has had an ankle fracture, tibial plateau fracture and a distal femur fracture along with some wound healing problems and skin grafting and coverage procedures. She has not anything done in the past 20 years. She stained a fall yesterday. Acute onset of pain. She brought the emergency room x-rays of displaced comminuted patella fracture with extensor mechanism disruption. The patient indicated for surgical repair. Description of Procedure The patient was taken to the op room, identified, placed on the operating table in the supine position. All contact areas were appropriately padded. IV antibiotics fibra anesthesia team. A general anesthetic was implemented. A left phytate was then placed. The left lower extremity was then scrubbed with a Betadine, prepped with DuraPrep and then draped in usual sterile fashion. The left leg was elevated exsanguinated with use of an Esmarch and tourniquet placed at 300 mmHg. An anterior lateral kind of approach of the leg. Knee was performed. I tried to use her previous incision and then extended it medially over the patella. We tried to provide the safest course for healing considering her previous procedures in this area. Sharp dissection Through subcutaneous tissues. There was a large hematoma. The full-thickness flaps were elevated off the extensor mechanism. I then debrided some of the loose frayed tissue. I then carefully debrided the patella tendon of the bone fragments inferiorly. We left some of the fragments intact to hopefully provide little better purchase with a suture. I then placed 3 holes through the patella from the inferior to the superior aspect. I then placed two #5 FiberWire sutures in a Krakw fashion and the main portion of the patella tendon laterally. This encompassed about 75% of the tendon. I then fed this through the drill hole just pulled the quad tendon down and so these and got excellent approximation. I then placed a suture anchor over the anterior medial aspect where there was a small portion of the patella tendon avulsed off the proximal tibia. This was placed through the patella tendon and then repaired. I then repaired the medial and lateral extensor retinaculum tears with #1 PDS suture in a nartwl-wp-mewod fashion. Of the wound was irrigated. Injected locally with 30 cc of half percent Marcaine with epinephrine. The tourniquet was let down for final tourniquet time 54 minutes. Hemostasis surgery was electrocautery. Wound was once again irrigated. The tourniquet was let down for final tourniquet time 54 minutes. The subcutaneous tissue was then closed with 2-0 Vicryl suture in a buried interrupted fashion skin was closed with 3-0 nylon suture in simple fashion. Leg was then cleaned and dried and a sterile dressing with Xeroform, 4 fours, sterile cast padding, ADB pads, Sang bandage, knee immobilizer was applied. The patient then brought out of general esthesia and transferred to the recovery in stable condition. Patient tolerated procedure well and there are no complications. Vasiliy Saravia, my physician assistant production manager, was present for the entire procedure. His assistance was required for proper patient positioning, prepping and draping, surgical exposure, retraction, perform the technical details of the operation, closure of the incision site, and placement of postoperative sterile bandage. I attest to the content of the Intraoperative Record and any orders documented therein. Any exceptions are noted below.
[2025-07-09] MEDS: LABETALOL HCL IV 5 MG/ML 20ML IV ONE (10:05)
--- NOTE | 2025-07-09 10:21 | Hospitalist Progress Note ---
Date of Service July 09, 2025 Assessment & Plan (1) Closed fracture of left patella: (2) Peripheral neuropathy due to chemotherapy: (3) Port-A-Cath in place: (4) T-cell lymphoma: Plan This is a 60-year-old female with a history of T-cell lymphoma status postchemotherapy currently in remission who presents to the hospital following a mechanical fall. She sustained a left patella fracture. 1. Acute left patella fracture: Following a mechanical fall Imaging study shows evidence of acute left patella fracture Orthopedics has been notified Plan is for surgery this morning 2. T-cell lymphoma: Status postchemotherapy. Currently in remission Although patient still has a port Full code Admission and Anticipated Discharge Date Admission Date: July 08, 2025 Subjective Going for surgery Review of Systems Review of Systems: All systems reviewed are negative, apart from the ones contained in the history. Physical Exam Physical Exam: The patient is awake, alert and oriented 3, well developed and well nourished, normocephalic and atraumatic, lying in bed and in no acute distress. HEENT--PERRL, EOMI, mucous membranes and oropharynx mildly dry Neck--supple. No JVD. No bruits. Thyroid normal, trachea midline, no adenopathy. Heart--normal S1 and S2. No murmurs, rubs or gallops. Lungs--clear bilaterally, no respiratory distress, no accessory muscle use. Abdomen--normal bowel sounds and soft. Extremities--Left lower extremity in splint Dermatologic--normal skin turgor, normal color, no abnormal lymph nodes, no rash. Neurologic--cranial nerves II through XII grossly intact. Rheumatologic--normal range of motion. Psychiatric--normal affect. Results & Data Results & Data Vital Signs (Past 12 Hours) Vital Signs Temp Pulse Pulse Resp BP Pulse Ox O2 Del Method 07/09/25 10:00 117 H 14 173/105 H 100 Oxymask 07/09/25 09:50 97.3 F L 123 H 13 174/101 H 100 Oxymask 07/09/25 07:59 98.6 F 90 18 149/80 H 94 Room Air 07/08/25 23:50 98.7 F 79 16 119/76 92 Room Air O2 Flow Rate 07/09/25 10:00 10 07/09/25 09:50 10 07/09/25 07:59 09/26/25 23:50 PG Care Time/CCT Total # of Minutes Spent Total Time Spent with Patient: Total time spent is greater than 50% in coordination of care (as documented) at patient's floor/unit and/or counseling patient: Coding Level of Care Code 03948 SUB INP/OBS CARE 2/35MIN Diagnoses Closed fracture of left patella S82.002A Peripheral neuropathy due to chemotherapy G62.0; T45.1X5A Port-A-Cath in place Z95.828 T-cell lymphoma C85.90 Time Spent (min) 35
--- NOTE | 2025-07-09 10:31 | Anesthesiology Progress Note ---
Date of Service July 09, 2025 Anesthesia Post Procedure Vital Signs Vital Signs: Temp Pulse Pulse Pulse Resp BP BP 07/09/25 10:20 86 14 07/09/25 10:10 91 H 14 07/09/25 10:00 117 H 14 07/09/25 09:50 36.3 C L 123 H 13 07/09/25 07:59 37.0 C 90 18 07/08/25 23:50 37.1 C 79 16 07/08/25 18:46 36.7 C 82 17 136/87 07/08/25 18:08 97 H 07/08/25 18:00 79 20 137/94 07/08/25 17:00 93 H 16 155/93 H 07/08/25 17:00 95 H 16 155/93 H 07/08/25 16:00 89 16 151/99 H 07/08/25 15:19 07/08/25 15:19 85 18 172/97 H 07/08/25 14:24 89 07/08/25 13:54 36.8 C 92 H 20 181/101 H BP Pulse Ox O2 Del Method O2 Flow Rate 07/09/25 10:20 144/92 H 100 Oxymask 3 07/09/25 10:10 135/85 98 Oxymask 6 07/09/25 10:00 173/105 H 100 Oxymask 10 07/09/25 09:50 174/101 H 100 Oxymask 10 07/09/25 07:59 149/80 H 94 Room Air 07/08/25 23:50 119/76 92 Room Air 07/08/25 18:46 98 Room Air 07/08/25 18:08 07/08/25 18:00 96 Room Air 07/08/25 17:00 94 Room Air 07/08/25 17:00 96 Room Air 07/08/25 16:00 Room Air 07/08/25 15:19 97 Room Air 07/08/25 15:19 98 Room Air 07/08/25 14:24 07/08/25 13:54 98 Room Air Pain Intensity Left Knee: Pain Intensity: 4 Transfer of Care Handoff Completed per policy Notes Mental Status: alert / awake / arousable Patient Amnestic to Procedure: Yes Nausea / Vomiting: adequately controlled Pain: adequately controlled Airway Patency, RR, SpO2: stable & adequate BP & HR: stable & adequate Hydration State: stable & adequate Anesthetic Complications: no major complications apparent
[2025-07-09] MEDS ORDERED: ALUMINUM/MAGNESIUM SUSP 30 ML UDC PO PRN (10:48)
[2025-07-09] MEDS ORDERED: METOCLOPRAMIDE HCL INJ 5 MG/ML 2 ML VIAL IV PRN (10:48)
[2025-07-09] MEDS ORDERED: diphenhydrAMINE Capsule 25 MG CAP PO PRN (10:48)
[2025-07-09] MEDS: ACETAMINOPHEN 500 MG TAB PO SCH (13:11)
[2025-07-09] MEDS: SODIUM CHLORIDE 0.9% 1,000 ML IV SCH (13:11)
[2025-07-09] MEDS: KETOROLAC 30 MG/ML VIAL IV SCH (13:11)
[2025-07-09] MEDS: SCOPOLAMINE 1 MG/72 HR TDSY PATCH TD ONE (13:53)
[2025-07-09] MEDS: FAMOTIDINE/PF 20 MG/2 ML VIAL IV ONE (13:53)
[2025-07-09] MEDS: TRANEXAMIC ACID / 0.7% NACL 1,000 MG/100 ML BAG IV SCH (16:29)
[2025-07-09] MEDS: ASCORBIC ACID 500 MG TAB PO SCH (16:31)
[2025-07-09] MEDS: DOCUSATE SODIUM 100 MG CAP PO SCH (20:15)
[2025-07-09] MEDS: ASPIRIN 81 MG ECTAB PO SCH (20:15)
[2025-07-09] MEDS: SENNA 8.6 MG TAB PO SCH (20:15)
[2025-07-09] MEDS: HYDROmorphone INJ 0.5 MG/0.5 ML SYR IV PRN (21:44)
--- NOTE | 2025-07-09 22:00 | Electrocardiogram Report ---
Test Reason : Blood Pressure : */* mmHG Vent. Rate : 73 BPM Atrial Rate : 73 BPM P-R Int : 154 ms QRS Dur : 104 ms QT Int : 430 ms P-R-T Axes : 42 2 12 degrees QTcB Int : 473 ms Normal sinus rhythm Cannot rule out Anterior infarct , age undetermined Abnormal ECG When compared with ECG of 20-Aug-2024 16:34, No significant change was found Confirmed by Larry Sanchez ([id number]) on 07/09/2025 10:00:39 PM Referred By: REFERRED SELF Confirmed By: Larry Sanchez
--- NOTE | 2025-07-10 07:20 | Orthopedic Progress Note ---
Date of Service July 10, 2025 Assessment & Plan (1) Closed fracture of left patella: Plan: 60-year-old female with history of multiple surgeries on this left leg in the past now postop day 1 from a left knee partial patellectomy me and extensor mechanism repair. Clinically she is doing okay. Pain is currently under control. Plan: 1. PT/OT. She can fully weight-bear as tolerated as long as she is in the knee immobilizer and her knees in full extension. No knee range of motion at this point. 2. DVT prophylaxis including thigh-high teds, SCDs, aspirin twice a day. 3. Pain control. Doing okay with current pain regimen. 4. Medical management as per the medicine service. 5. Disposition. She is orthopedically okay for discharge anytime medically stable. Will need to get professor of social work involved. She may need a rehab stay. I do need to see her back about 2 to 3 weeks out from surgery date. Any orthopedic questions can be directly [phone]. (2) Peripheral neuropathy due to chemotherapy: (3) Hyperlipidemia: Admission and Anticipated Discharge Date Admission Date: July 08, 2025 Subjective 60-year-old female postop day 1 from a left partial patellectomy me and extensor mechanism repair pair. She is doing okay. Had quite a bit of pain last night but doing better this morning. No new complaints. No chest pain no shortness of breath. Physical Exam Physical Exam: Physical examination was a pleasant middle-age female. She is lying in bed looks comfortable. Examination of the left leg reveals the dressing be clean dry and intact. Knee immobilizer is in place. She can dorsiflex and plantarfl ex her foot appropriately. She is neurologically intact. Results & Data Vital Signs (Past 12 Hours) Vital Signs Temp Pulse Resp BP Pulse Ox O2 Del Method O2 Flow Rate 07/10/25 04:00 36.9 C 90 18 127/74 92 Room Air 07/10/25 00:00 37.1 C 98 H 18 136/79 93 Room Air 07/09/25 20:00 37.1 C 933 H 18 111/69 97 Room Air 07/09/25 19:25 Nasal Cannula 2 Laboratory Results Labs are pending.
[2025-07-10 07:26] LABS: Hematocrit (blood only) 31.3 % (37.0-47.0); Hemoglobin 10.5 g/dl (12.0-16.0); Mean Corpuscular Hemoglobin 29.6 pg (25.0-34.0); Mean Corpuscular Volume 88.2 fL (80.0-100.0); Platelet Count 129 K/uL (130-400); RDW Standard Deviation 39.8 fL (36.4-46.3); Red Blood Count 3.55 M/uL (4.20-5.40); White Blood Count 9.96 K/ul (4.8-10.8)
[2025-07-10] MEDS: MAGNESIUM HYDROXIDE SUSP 30 ML UDC PO PRN (07:27)
[2025-07-10] MEDS: MULTIVITAMIN TAB PO SCH (07:28)
[2025-07-10 07:43] LABS: Anion Gap 5.0 (3-11); Blood Urea Nitrogen 17.0 mg/dl (6-23); Calcium 8.8 mg/dl (8.6-10.3); Carbon Dioxide 30.0 mmol/L (21-32); Chloride 106.0 mmol/L (98-107); Creatinine Clr Calc Pharmacy 88.1 ml/min; Glucose 103.0 mg/dl (70-99(Fasting)); Potassium 4.1 mmol/L (3.5-5.1); Sodium 141.0 mmol/L (136-145)
[2025-07-10] MEDS: dexAMETHasone 10 MG in SYRINGE 0 ML IV SCH (08:21)
[2025-07-10] MEDS: FUROSEMIDE 40 MG/4 ML VIAL IV ONE (10:13)
[2025-07-10] MEDS: HEPARIN 100 UNIT/ML 5ML FLUSH FLUSH PRN (10:16)
--- NOTE | 2025-07-10 10:54 | Hospitalist Progress Note ---
Date of Service July 10, 2025 Assessment & Plan (1) Closed fracture of left patella: (2) Peripheral neuropathy due to chemotherapy: (3) Port-A-Cath in place: (4) T-cell lymphoma: Plan This is a 60-year-old female with a history of T-cell lymphoma status postchemotherapy currently in remission who presents to the hospital following a mechanical fall. She sustained a left patella fracture. 1. Acute left patella fracture: Following a mechanical fall Imaging study shows evidence of acute left patella fracture She is now day 1 s/p patellectomy and repair Per Ortho, She can fully weight-bear as tolerated as long as she is in the knee immobilizer and her knees in full extension. No knee range of motion at this point. Patient says she prefers home with home health 2. T-cell lymphoma: Status postchemotherapy. Currently in remission Although patient still has a port Full code Disposition: Patient says she prefers home with home health when arranged, will consult SW Admission and Anticipated Discharge Date Admission Date: July 08, 2025 Subjective patient seen and examined, says pain is under good control Review of Systems Review of Systems: All systems reviewed are negative, apart from the ones contained in the history. Physical Exam Physical Exam: The patient is awake, alert and oriented 3, well developed and well nourished, normocephalic and atraumatic, lying in bed and in no acute distress. HEENT--PERRL, EOMI, mucous membranes and oropharynx mildly dry Neck--supple. No JVD. No bruits. Thyroid normal, trachea midline, no adenopa thy. Heart--normal S1 and S2. No murmurs, rubs or gallops. Lungs--clear bilaterally, no respiratory distress, no accessory muscle use. Abdomen--normal bowel sounds and soft. Extremities--Left lower extremity in splint Dermatologic--normal skin turgor, normal color, no abnormal lymph nodes, no rash. Neurologic--cranial nerves II through XII grossly intact. Rheumatologic--normal range of motion. Psychiatric--normal affect. Results & Data Results & Data Vital Signs (Past 12 Hours) Vital Signs Temp Pulse Resp BP BP Pulse Ox O2 Del Method 07/10/25 07:57 98.4 F 89 16 143/77 H 94 Room Air 07/10/25 04:00 98.4 F 90 18 127/74 92 Room Air 07/10/25 00:00 98.7 F 98 H 18 136/79 93 Room Air PG Care Time/CCT Total # of Minutes Spent Total Time Spent with Patient: Total time spent is greater than 50% in coordination of care (as documented) at patient's floor/unit and/or counseling patient: Coding Level of Care Code 44428 SUB INP/OBS CARE 2/35MIN Diagnoses Closed fracture of left patella S82.002A Peripheral neuropathy due to chemotherapy G62.0; T45.1X5A Port-A-Cath in place Z95.828 T-cell lymphoma C85.90 Time Spent (min) 35
[2025-07-11 07:15] LABS: Hematocrit (blood only) 31.2 % (37.0-47.0); Hemoglobin 10.0 g/dl (12.0-16.0); Mean Corpuscular Hemoglobin 28.2 pg (25.0-34.0); Mean Corpuscular Volume 88.1 fL (80.0-100.0); Platelet Count 133 K/uL (130-400); RDW Standard Deviation 41.0 fL (36.4-46.3); Red Blood Count 3.54 M/uL (4.20-5.40); White Blood Count 8.51 K/ul (4.8-10.8)
[2025-07-11 07:34] VITALS: BP 152/90; PULSE 81; RESP 16; TEMP 98.1; O2SAT 98
--- NOTE | 2025-07-11 07:49 | Orthopedic Progress Note ---
Date of Service July 11, 2025 Assessment & Plan (1) Closed fracture of left patella: * Continue Current Treatment * S/p left partial patellectomy, extensor mechanism repair * Weight bearing status: WBAT in KI * NO KNEE ROM * Daily treatment: Physical Therapy/ Occupational Therapy per protocol * Pain control * Continue to monitor for ABLA * DVT prophylaxis, ok to resume from ortho standpoint * Disposition: home * Office/hospital f/u 2 weeks for progress check and staple/suture removal * Remainder care per primary team * Stable for discharge from ortho standpoint Subjective .Active Problems: S/p left partial patellectomy, extensor mechanism repair POD 2 60 y/o female s/p left partial patellectomy, extensor mechanism repair. Doing well overall, pain managed and improved function. Denies fever/chills, chest pain/SOB, nausea/vomiting. Otherwise no complaints. Review of Systems All systems reviewed & are unremarkable except as noted in HPI & below. Physical Exam . * General: Alert and oriented, no acute distress * Constitutional: well-developed, well-nourished. * Respiratory: Normal respiratory effort, no distress * Gastrointestinal: No tenderness to palpation, no rigidity or guarding. * Skin: No rash or lesion. * Neurologic: Grossly normal * Musculoskeletal: Left knee surgical dressing CDI, not removed for exam. Knee immobilizer in place. Otherwise no obvious deformity or overlying skin changes RLE. Diffuse TTP distal thigh and knee region. Otherwise no specific tenderness of proximal thigh, lower leg, foot/ankle. ROM knee not assesed. AROM foot/ankle intact. Sensation intact plantar/dorsal foot. Brisk capillary refill. Results & Data Results & Data Laboratory Results . Diagnostic Findings . PG Care Time/CCT Total # of Minutes Spent Total Time Spent with Patient: Total time spent is greater than 50% in coordination of care (as documented) at patient's floor/unit and/or counseling patient: Coding Level of Care Code 73233 Post Operative Follow-Up Diagnoses Closed fracture of left patella S82.002A
[2025-07-11 07:55] LABS: Anion Gap 4.0 (3-11); Calcium 8.8 mg/dl (8.6-10.3); Carbon Dioxide 32.0 mmol/L (21-32); Chloride 105.0 mmol/L (98-107); Potassium 3.7 mmol/L (3.5-5.1); Sodium 141.0 mmol/L (136-145)
[2025-07-11 08:00] LABS: Blood Urea Nitrogen 26.0 mg/dl (6-23); Creatinine Clr Calc Pharmacy 92.9 ml/min; Glucose 93.0 mg/dl (70-99(Fasting))
--- NOTE | 2025-07-11 13:50 | Discharge Summary ---
Discharge Summary Date of Service July 11, 2025 Principal Dx & Hospital Course #1 = Principal Diagnosis (1) Closed fracture of left patella: (2) Peripheral neuropathy due to chemotherapy: (3) Port-A-Cath in place: (4) T-cell lymphoma: Plan This is a 60-year-old female with a history of T-cell lymphoma status postchemotherapy currently in remission who presents to the hospital following a mechanical fall. She sustained a left patella fracture. 1. Acute left patella fracture: -Following a mechanical fall -Imaging study shows evidence of acute left patella fracture -She is now day 2 s/p patellectomy and repair -Per Ortho, She can fully weight-bear as tolerated as long as she is in the knee immobilizer and her knees in full extension. No knee range of motion at this point. Patient says she prefers home with home health - Requiring no narcotic based pain medication advised to continue gabapentin as outpatient as previously prescribed, Tylenol or ibuprofen as needed 2. T-cell lymphoma: -Status postchemotherapy. -Currently in remission -Although patient still has a port Full code Disposition: Patient says she prefers home with home health when arranged, will consult SW Admission HPI Per Admitting Provider This is a 60-year-old female with a history of anaplastic large cell lymphoma, status post chemotherapy, currently in remission who came to the hospital today following a mechanical fall. According to the patient he was walking through a wet marble floor when she slipped lost her balance and fell on her knee. She d enied hitting her head but complained immediately of diffuse pain in the knee. Upon arrival at the emergency department an x-ray was done which showed evidence of an acute left patella fracture. Orthopedics has been consulted and plan is for her to be admitted to the hospital for the OR tomorrow morning. Vital signs are stable, blood pressure 150/99 pulse 89 respiratory rate 16 saturating 97% on room air. Discharge Exam Constitutional Alert and oriented no apparent distress Respiratory Clear to auscultation bilaterally Cardiovascular Regular rate and rhythm no murmurs rubs or gallops Gastrointestinal (Abdomen) Normal bowel sounds Musculoskeletal The immobilizer on the left, distal sensorimotor function device. Skin No diffuse rash pallor or discoloration Discharge Plan Discharge Items Patient Disposition: Home - Home Health Services Reason For Visit: PATELLA FRACTURE Discharge Diagnosis: Patella fracture S/P partial patellectomy and extensor mechanism repair Condition on Discharge: Fair Goals: Manage pain, improved function. Activity: Per Instructions section Activity Comment: Weightbear as tolerated in knee immobilizer. No knee bending/ROM Weightbearing: Full weightbearing Weightbearing Comment: Weightbear as tolerated in knee immobilizer. No knee ROM or bending Non-emergency contact: Primary Care Provider Call non-emergency contact if: your symptoms worsen, your pain is not contro lled, you have a fever, your wound has increased redness and your wound has increased drainage Follow-up/Referrals: Abran Moss MD [Primary Care Provider] - Corwin Gallardo MD [Physician] - (Orthopedic follow-up 2-3 weeks from surgery date) Diet: Regular Addtl Attending Provider Instructions: General Orthopedic Discharge Instructions Activity: weight bear as tolerated with knee immobilizer, no ROM Diet: You may resume previous diet. Medications: 1. Narcotic You will likely be sent home from the hospital with a prescription for the narcotic pain medication. Take it as needed. Side effects most commonly include nausea and constipation 2. Resume previous home medications unless otherwise instructed Dressing Care: If there is a soft dressing in place then leave the dressing intact for 5 days. On the 5th you may remove the dressing and leave the stitches open to air or cover them with band-aids. Keep the incision clean and dry If there is a hard splint then leave it in place until your follow-up visit in 2 weeks Showering: If you have a soft dressing you may shower right after the surgery but do not get the dressing wet. After the dressing is removed on the 5th day then you can get the stitches wet in the shower, but do not soak or scrub them. Let the soapy shower water run over the stitches and pat them dry. If you have a hard splint, cover it in a plastic bag and keep it dry. Do not remove it until the follow up appointment. Things To Watch For: 1. Drainage from the incision site that occurs more than one week after your surgery. 2. Increased redness at the incision site. 3. Fever above 102 degrees Fahrenheit. 4. Unusual chest pain or shortness of breath. 5. Call [facility] at with any of the above problems. Follow-Up Visit: Please make arrangements to follow-up with Dr. Gallardo team approximately 2 weeks after your day of surgery for progress check and staple/suture removal. If you have any questions call Pending Studies at Discharge: No Stand-Alone Forms: My [facility] Next Caller, Smoking Cessation Medications and DC Order Prescriptions: Continued clobetasol 0.05 % cream 1 applic topical BID Qty: 60 1RF Rx Instructions: Apply to areas of the trunk and extremities twice daily x 2 weeks as directed. Vitamin C Drops 60 mg lozenge 60 mg PO BID PRN (Reason: Cold Symptoms) fluticasone propionate [Flonase Allergy Relief] 50 mcg/actuation spray,suspension 1 spray intranasal DAILY Rx Instructions: administer into each nostril multivit with min-folic acid [Women's Multivitamin Gummies] 200 mcg Tablet,Chewable 200 mcg PO HS ibuprofen 200 mg Tablet 400 - 600 mg PO Q6H PRN (Reason: Pain) turmeric 400 mg Capsule 400 mg PO UD PRN (Reason: pain/inflammation) gabapentin 600 mg tablet 600 mg PO TID Rx Instructions: TAKE 1 TABLET BY MOUTH THREE TIMES A DAY rosuvastatin 5 mg tablet 5 mg PO QAM Discharge Orders: Discharge Order (Routine); Ordered 07/11/25 Ordered By: Santiago Carreon/Other Patient Handouts: ED Fracture, Knee Admission Data Admit Date/Time: 07/08/25 16:41 Attending Provider: Santiago Lugo Admit Provider: Hector De La Vega Primary Care Provider: Abran Moss V. Other Providers: Corwin Gallardo; Hector De La Vega; [facility] Stay Data Consultations 07/08/25 15:36 Consult Orthopedic Surgery Stat 07/08/25 15:58 ED Decision to Admit Stat Procedures Performed Operation Date: 07/09/25 07:30 Actual Procedures p Left Knee Partial Patellectomy, Extensor Mechanism Repair(Left) - Corwin Gallardo MD Diagnostic Imagining Performed 07/08/25 14:21 CT angio LE LT w inc wo if don Stat Pending Results Patient Have Any Pending Studies at Discharge: No Discharge Instructions Given to Patient (Per Discharging Provider) General Orthopedic Discharge Instructions Activity: weight bear as tolerated with knee immobilizer, no ROM Diet: You may resume previous diet. Medications: 1. Narcotic You will likely be sent home from the hospital with a prescription for the narcotic pain medication. Take it as needed. Side effects most commonly include nausea and constipation 2. Resume previous home medications unless otherwise instructed Dressing Care: If there is a soft dressing in place then leave the dressing intact for 5 days. On the you may remove the dressing and leave the stitches open to air or cover them with band-aids. Keep the incision clean and dry If there is a hard splint then leave it in place until your follow-up visit in 2 weeks Showering: If you have a soft dressing you may shower right after the surgery but do not get the dressing wet. After the dressing is removed on the 5th day then you can get the stitches wet in the shower, but do not soak or scrub them. Let the soapy shower water run over the stitches and pat them dry. If you have a hard splint, cover it in a plastic bag and keep it dry. Do not remove it until the follow up appointment. Things To Watch For: 1. Drainage from the incision site that occurs more than one week after your surgery. 2. Increased redness at the incision site. 3. Fever above 102 degrees Fahrenheit. 4. Unusual chest pain or shortness of breath. 5. Call [facility] at with any of the above problems. Follow-Up Visit: Please make arrangements to follow-up with Dr. Gallardo team approximately 2 weeks after your day of surgery for progress check and staple/suture removal. If you have any questions call Total Time Total Time Spent Total Time Spent (In Minutes): 25 Coding Level of Care Code 73364 IN/OBS DISCH 30 MIN/LESS Diagnoses Closed fracture of left patella S82.002A Peripheral neuropathy due to chemotherapy G62.0; T45.1X5A Port-A-Cath in place Z95.828 T-cell lymphoma C85.90
[2025-07-11] MEDS: INFLUENZA VACC TS2025-26(6m+)/PF (IIV3) 0.5mL Syr IM ONE (14:05)
== END 2025-07-11 15:28 | disposition home health service (06) | DRG 488 ==
LOC: ED 13:51 → SUATTDRO 16:41 → 3N 16:41